=== PATIENT | female | born 1990 | race Two or more races ===

== ENCOUNTER 2020-08-08 19:10 | Emergency (ER) | payer SELFPAY ==
[~2020-08-08] VITALS: Ht 162.6 cm; Wt 57.0 kg
[2020-08-08] MEDS ORDERED: ACETAMINOPHEN 325MG TABLET PO ONE (20:45)
[2020-08-08 23:05] VITALS: BP 102/59
== END 2020-08-08 23:05 | disposition home or self-care (01) ==
LOC: ER 19:10
DX: M25.562 Pain in left knee (principal)
CPT/HCPCS: 73560; 81025; 99283